=== PATIENT | male | born 1965 | race Caucasian/White ===

== ENCOUNTER 2020-11-21 05:35 | Outpatient (CLI) | payer BC ==
[~2020-11-21] VITALS: Ht 182.9 cm; Wt 136.2 kg
[~2020-11-21 05:35] MED LIST: BUPR300T PO; HYDR1TAB86 PO; [UNRECOGNIZED DRUG - OTHER] SQ
[2020-11-21] MEDS ORDERED: DIET75TA31 PO (12:26)
[2020-11-21] MEDS ORDERED: LOSA1TAB23 PO (12:26)
[2020-11-21] MEDS ORDERED: DICL75TA2 PO (12:26)
== END 2020-11-21 12:59 | disposition home or self-care (01) ==
LOC: PREOP 05:35
PROVIDERS: ATTEND Internal Medicine
DX: Z01.818 Encounter for other preprocedural examination (principal)

== ENCOUNTER 2020-11-29 07:06 | Day surgery (SDC) | payer BC ==
[~2020-11-29] VITALS: Ht 183 cm; Wt 136.2 kg
[~2020-11-29 07:06] MED LIST changes: +DICL75TA2 PO; +DIET75TA31 PO; +LOSA1TAB23 PO
--- OUTSIDE RECORDS SUMMARY | 2020-11-29 07:09 | XMS REPORT | Clinical Summary ---
Author Author [facility] Organization [facility] Address Unknown Phone Unavailable Care Team Providers Care Gas Leak Inspector Helper Name Role Phone Elicia Moreno MD Unavailable Deng Rowe MD PCP Source Comments Some departments are not documenting in the electronic medical record. If you d o not see the information that you expected, contact Release of Information in [facility] department at [phone] for further assistan ce in locating additional records.[facility] Allergies Comments Active Allergy Reactions Severity Noted Date Divalproex RASH Medium 05/09/2015 Mclean Palsy Levofloxacin SEE COMMENTS High 06/18/2016 Medications End Date Status Medication Sig Dispensed Refills Start Date Active losartan-hydrochlorothiaz Take 1 Tab by 0 king (HYZAAR) 100-25 mg mouth every tablet morning. Active Diethylpropion 75 mg TbER Take 1 tablet 0 by mouth 9 daily. Active ibuprofen (MOTRIN) 400 mg Take 400 mg 0 tablet by mouth at bedtime as needed for Pain. Take with food. Active docosahexanoic acid/epa Take 1 0 (FISH OIL PO) capsule by mouth daily as needed. Active Multivitamins with Take 1 tablet 0 Fluoride (MULTI-VITAMIN by mouth PO) daily as needed. Active diclofenac sodium DR Take one 180 tablet 0 06/01 (VOLTAREN) 75 mg tablet tablet twice 0 daily as needed Active glatiramer (COPAXONE) 40 Inject 40 mg 12 mL 11 mg/mL syringe under the 0 skin three times weekly. Active Problems Problem Noted Date MS (multiple sclerosis) 02/12/2012 Overview: Formatting of this note might be differ ent from the original. Multiple Sclerosis Subtype: Relapsing/r emitting Last relapse 2010 Symptom onset: unknown Date of Diagnosis: 2009 Prior Medication failures:none Current DMD: Copaxone Last MRI 2018 BRAIN: stable demyelinating lesions, st able right frontal meningioma, may have one very small lesion in the antoine white junction on the left. C Spine MRI 2009 MRI C-SPINE WO/W CONTRAST IMPRESSION: 1. TWO CERVICAL CORD LESIONS. THE FIRST IS AT THE C2 LEVEL AND THE SECOND IS AT THE C7/T1 LEVEL. WHILE THIS IS NO NSPECIFIC A PRIMARY DEMYELINATING DISORDER SUCH MULTIPLE SCLEROSIS IN THE APPROPRIATE CLINICAL SETTING IS A PRIMARY CONSIDERATION. CLINICAL CO RRELATION IS RECOMMENDED. 2. MILD ENHANCEMENT OF THE LESION AT TH E C7/T1 LEVEL. L ast Assessment & Plan: Formatting of this note might be differ ent from the original. He is clinically and radiographically s table. Reviewed MRI with him. Continue Copaxone I spent approximately 30 minutes with t he patient with more than 50% of the time counseling and coordinating ca re for the patient Discussed diet and exercise and weight loss. He might be interested in the weight lo ss study at some point. We also discussed smoking cessation, and his th ought about a new job. Medical History Medical History Date Comments Arthritis Heart abnormalities Multiple sclerosis (HCC) Alcohol addiction (HCC) sober for many years Family History Medical History Relation Name Comments Cancer Father Diabetes Maternal Grandfather Diabetes Maternal Uncle Depression Mother Heart Attack Mother Heart Failure Mother Hypertension Mother Migraines Mother Arthritis-osteo Neg Hx Arthritis-rheumatoid Neg Hx Asthma Neg Hx High Cholesterol Neg Hx Rashes/Skin Problems Neg Hx Seizures Neg Hx Stroke Neg Hx Thyroid Disease Neg Hx Relation Name Status Comments Father Maternal Grandfather Maternal Uncle Mother Social History Date Tobacco Use Types Packs/Day Years Used Current Some Day Smoker Cigarettes 0.25 20 Smokeless Tobacco: Never Used Comments Alcohol Use Standard Drinks/Week No 0 (1 standard drink = 0.6 o z pure alcohol) Sex Assigned at Date Recorded Male 06/30/2019 8:24 AM CDT Last Filed Vital Signs Reading Time Taken Comments Vital Sign 115/75 07/04/2019 9:54 AM CDT Blood Pressure 59 07/04/2019 9:54 AM CDT Pulse 36.8 C (98.2 F) 02/11/2010 7:23 PM [facility] Temperature - - Respiratory Rate 99% 02/11/2010 6:00 PM [facility] Oxygen Saturation - - Inhaled Oxygen Concentration 141.3 kg (311 lb 6.4 oz) 07/04/2019 9:54 AM CDT Weight 182.9 cm (6') 07/04/2019 9:54 AM CDT Height 42.23 07/04/2019 9:54 AM CDT Body Mass Index Plan of Treatment Health Maintenance Due Date Last Done Comments HIV SCREENING 1981 DTAP/TDAP VACCINES (1 - 1984 Tdap) HEPATITIS C SCREENING 1984 PHYSICAL (COMPREHENSIVE) 1984 EXAM COLORECTAL CANCER 2016 SCREENING SHINGLES RECOMBINANT 2016 VACCINE (1 of 2) INFLUENZA VACCINE 09/22/2020 01/17/2020 Results Not on filefrom Last 3 Months Insurance Type Payer Benefit Subscriber ID Effective Phone Address Plan / Dates Group Indemnity [facility] [id number] 2019-P CHOICE/CHO resent [employer] (Home) [place] [id number] Advance Directives Patient Estate Planning Director Explanation Type Date Recorded Advance Directive/DPOA Date Inactivated Comments Code Status Date Activated 02/12/2010 5:06 AM Full Code 02/11/2010 2:22 PM
[2020-11-29] MEDS ORDERED: LACTATED RINGERS 1,000 ML IV ONE (07:14)
--- NOTE | 2020-11-29 07:19 | Pre-Op Note & Conscious Sedat ---
Pre-Operative Progress Note H&P Reviewed The H&P was reviewed, patient examined and no changes noted. Date H&P Reviewed: Nov 29, 2020 Time H&P Reviewed: 07:18 Conscious Sedation Pre-Proced ASA Score 2 For ASA 3 and 4: Consider anesthesia and medical clearance. Also, for patients with a history of failed moderate sedation consider anesthesia. Airway Lungs Heart ASA score ASA 1: a normal healthy patient ASA 2: a patient with a mild systemic disease (mid diabetes, controlled hypertension, obesity ASA 3: a patient with a severe systemic disease that limits activity (angina, COPD, prior Myocardial infarction) ASA 4: a patient with an incapacitating disease that is a constant threat to life (CHF, renal failure) ASA 5: a moribund patient not expected to survive 24 hrs. (ruptured aneurysm) ASA 6: a declared brain- patient whose organs are being harvested. For emergent operations, add the letter E after the classification Mallampati Classification Grade 2 Sedation Plan Analgesia, Amnesia, Plan communicated to team members, Discussed options with patient/fam, Discussed risks with patient/fam The patient is an appropriate candidate to undergo the planned procedure, sedation, and anesthesia. The patient immediately re-assessed prior to indication. LINDSEY GIORDANO MD Nov 29, 2020 07:19
[2020-11-29] MEDS ORDERED: LACTATED RINGERS 1,000 ML IV STA (07:21)
[2020-11-29 07:28] VITALS: BP 131/81
[2020-11-29] MEDS ORDERED: LIDOCAINE JELLY 2% 6 ML SYRINGE MM PRN (07:30)
[2020-11-29] MEDS ORDERED: proPOfol 200 MG/20 ML (DIPRIVAN) VIAL IV ONE (07:53)
[2020-11-29] MEDS ORDERED: MIDAZOLAM 2 MG/2 ML (VERSED) VIAL ONE (07:54)
[2020-11-29 08:30] VITALS: BP 106/52
[2020-11-29 08:35] VITALS: BP 108/52
[2020-11-29 08:40] VITALS: BP 106/60
[2020-11-29 09:00] VITALS: BP 124/78
[2020-11-29 09:15] VITALS: BP 124/78
--- NOTE | 2020-11-29 12:23 | Anesthesia-General Post-Op ---
MAC Patient Condition Mental Status/LOC: Same as Preop Cardiovascular: Satisfactory Nausea/Vomiting: Absent Respiratory: Satisfactory Pain: Controlled Complications: Absent Post Op Complications Complications None Follow Up Care/Instructions Patient Instructions None needed. Anesthesiology Discharge Order Discharge Order Patient is doing well, no complaints, stable vital signs, no apparent adverse anesthesia problems. No complications reported per nursing. BUBBA GRAHAM CRNA Nov 29, 2020 12:23
--- NOTE | 2020-11-29 15:26 | OPERATIVE REPORT ---
DATE OF SERVICE: COLONOSCOPY SUMMARY INDICATION FOR THE PROCEDURE: Screening. DESCRIPTION OF PROCEDURE: The patient was placed in the left lateral decubitus position. Prior to undergoing colonoscopy, digital rectal evaluation was performed. Anal sphincter tone was normal and the perianal reflexes intact. No evidence for external hemorrhoids were noted. There was grade 1 complex of internal hemorrhoid. The prostate is mildly enlarged and nontender to digital inspection. The colonoscope was then inserted into the rectum and under direct visualization advanced to cecum. The cecum was identified by identification of the ileocecal valve and cecal strap. Photographic documentation was obtained. Careful inspection was made as the colonoscope was withdrawn. Quality of prep was fair. FINDINGS: One small grade I internal hemorrhoid complex was noted. Rectum was otherwise unremarkable. Moderate diverticular disease predominantly noted in the sigmoid colon was present without evidence for diverticulitis. The sigmoid colon revealed no other abnormalities. One diminutive 3 mm sessile polyp was noted in the distal descending colon. It was biopsied and ablated and submitted for histopathology. The remainder of the descending colon, splenic flexure, transverse colon, hepatic flexure, ascending colon and cecum were unremarkable, save for a few small scattered diverticulum. ASSESSMENT: One diminutive polyp was removed from the distal descending colon. As long as there are no surprise on histopathology report, would advocate consideration for repeat screening colonoscopy in 10 years. Digital evaluation of the prostate was compatible with mild BPH. Moderate diverticular disease without evidence for diverticulitis was present predominantly in the sigmoid colon. One small grade I internal hemorrhoid complex was noted. Job ID: [id number] DocumentID: [id number] Dictated Date: 11/29/2020 09:01:46 Ditch Worker Date: 11/29/2020 15:25:59 Dictated By: LINDSEY GIORDANO MD
== END 2020-11-29 09:15 | disposition home or self-care (01) ==
LOC: ENDO 07:06
PROVIDERS: ATTEND Internal Medicine
DX: Z12.11 Encounter for screening for malignant neoplasm of colon (principal); D12.4 Benign neoplasm of descending colon; K57.30 Diverticulosis of large intestine without perforation or abscess without bleeding; K64.8 Other hemorrhoids; I10 Essential (primary) hypertension; E66.9 Obesity, unspecified; R22.0 Localized swelling, mass and lump, head; F17.210 Nicotine dependence, cigarettes, uncomplicated; Z79.1 Long term (current) use of non-steroidal anti-inflammatories (NSAID); Z79.899 Other long term (current) drug therapy; Z68.41 Body mass index [BMI] 40.0-44.9, adult

== ENCOUNTER → 2021-03-20 | Outpatient (CLI) | payer BC, OTHER | LOC: LAB 11:23 | PROVIDERS: ATTEND Internal Medicine | DX: M79.605 Pain in left leg (principal); R22.42 Localized swelling, mass and lump, left lower limb | CPT/HCPCS: 36415; 85379 ==